=== PATIENT | male | born 1955 | race Caucasian/White ===

== ENCOUNTER 2018-09-07 12:02 | Inpatient (IN) | payer OTHER ==
[~2018-09-07] VITALS: Ht 177.8 cm; Wt 109.8 kg
[2018-09-19] MEDS ORDERED: TOPROL XL100 M1 (13:11)
[2018-09-19] MEDS ORDERED: APRESOLINE 10MG10 MG PO (13:12)
[2018-09-19] MEDS ORDERED: ZESTRIL40 M1 PO (13:12)
[2018-09-19] MEDS ORDERED: ASPIRIN81 M1 PO (13:13)
[2018-09-19] MEDS ORDERED: CLONIDINE HCL0.2 MG PO (13:13)
[2018-09-19] MEDS ORDERED: LIPITOR20 MG PO (13:13)
== END 2018-09-29 16:55 | disposition home or self-care (01) | DRG 349 ==
LOC: O/R 09-27 05:16 → SURG 09-27 07:00 → SURH 09-27 10:52
PROVIDERS: ADMIT Colon & Rectal Surgery
PROC: 0DBP7ZZ Excision of Rectum, Via Natural or Artificial Opening (ICD-10-PCS; principal; 2018-09-27 07:00)
DX: C20 Malignant neoplasm of rectum (principal); I13.10 Hypertensive heart and chronic kidney disease without heart failure, with stage 1 through stage 4 chronic kidney disease, or unspecified chronic kidney disease; N18.3 Chronic kidney disease, stage 3 (moderate); E78.00 Pure hypercholesterolemia, unspecified; E66.8 Other obesity; G47.33 Obstructive sleep apnea (adult) (pediatric)